=== PATIENT | male | born 1970 | race Caucasian/White ===

== ENCOUNTER 2023-10-19 10:53 | Outpatient (CLI) | payer MEDICAID | END 2023-10-19 23:59 | disposition home or self-care (01) | LOC: RAD 10:53 | PROVIDERS: ATTEND Registered Nurse | DX: K80.20 Calculus of gallbladder without cholecystitis without obstruction (principal); R10.9 Unspecified abdominal pain; R31.9 Hematuria, unspecified | CPT/HCPCS: 74176 ==